=== PATIENT | female | born 1960 | race Caucasian/White ===

== ENCOUNTER 2020-11-07 04:37 | Inpatient (IN) | payer MEDICARE, OTHER ==
[~2020-11-07] VITALS: Ht 162.6 cm; Wt 81.6 kg
--- NOTE | 2020-11-07 04:38 | NUR ---
PT AAOX4. BIBRA FROM HOME C/O MIDSTERNAL CP RADIATING TO L ARM +BACK OF NECK. PLACED ON OBSTETRICAL ANESTHESIOLOGIST AND PULSE OX IN BED 11. ER MD AT BEDSIDE FOR EVAL. HPLC CHEMIST GIVEN NITRO AND ASPIRIN. STATES SHE FEELS BETTER BUT REMAINS HAVING SOME PAIN.
[2020-11-07] MEDS ORDERED: ASPIRIN 325 MG TABLET ONE (04:41)
[2020-11-07] MEDS ORDERED: MORPHINE SULFATE INJ 4 MG/ML DISP.SYRIN ONE (04:45)
[2020-11-07] MEDS ORDERED: ONDANSETRON HCL/PF 4 MG/2 ML VIAL ONE (04:45)
[2020-11-07 04:56] LABS: BASOPHILS # (AUTO) 0.1 /CMM (0.0-0.2); BASOPHILS % (AUTO) 0.6 % (0.0-2.0); EOSINOPHILS % (AUTO) 1.7 % (0.0-6.0); HEMATOCRIT 38 % (33-45); LYMPHOCYTES # (AUTO) 2.6 /CMM (0.8-4.8); LYMPHOCYTES % (AUTO) 27.8 % (20.0-44.0); MEAN CORPUSCULAR HGB CONC 34 g/dl (31.0-36.0); MEAN CORPUSCULAR VOLUME 88 fL (82-100); MONOCYTES # (AUTO) 0.6 /CMM (0.1-1.30); MONOCYTES % (AUTO) 6.6 % (2.0-12.0); NEUTROPHILS # (AUTO) 5.9 /CMM (1.8-8.9); NEUTROPHILS % (AUTO) 63.3 % (43.0-81.0); PLATELET COUNT (AUTO) 213 /CMM (150-450); RED BLOOD CELL COUNT(AUTO) 4.33 MIL/uL (4.0-5.2); WHITE BLOOD COUNT (AUTO) 9.3 K/uL (4.3-11.0)
[2020-11-07] MEDS ORDERED: MORPHINE SULFATE INJ 2 MG/ML DISP.SYRIN IV ONE (05:00)
[2020-11-07] MEDS ORDERED: ONDANSETRON HCL/PF - ER 4 MG/2 ML VIAL IV ONE (05:00)
[2020-11-07] MEDS ORDERED: ASPIRIN 325 MG TABLET PO ONE (05:00)
[2020-11-07 05:03] LABS: CARBON DIOXIDE 26 mmol/L (21-32); CHLORIDE 105 mmol/L (98-107); CREATININE 0.7 mg/dL (0.6-1.3); GLUCOSE 170 mg/dL (74-106); SODIUM SERUM 140 mmol/L (136-145); UREA NITROGEN, BLOOD 8 mg/dL (7-18)
[2020-11-07] MEDS ORDERED: MAGNESIUM HYDROXIDE 30 ML UDC PO PRN ×2 (07:00→12:30)
[2020-11-07] MEDS ORDERED: MAG HYDROX/AL HYDROX/SIMETH 30 ML UDC PO PRN ×2 (07:00→12:30)
[2020-11-07] MEDS ORDERED: Z GUARD REMEDY 2 OZ OINT TP PRN ×2 (07:00→12:30)
[2020-11-07] MEDS ORDERED: ZOLPIDEM TARTRATE 5 MG TABLET PO PRN ×2 (07:00→12:30)
[2020-11-07] MEDS ORDERED: ACETAMINOPHEN 325 MG TABLET PO PRN ×2 (07:00→12:30)
[2020-11-07] MEDS ORDERED: ONDANSETRON HCL/PF 4 MG/2 ML VIAL IVP PRN ×2 (07:00→12:30)
--- NOTE | 2020-11-07 08:15 | NUR ---
Assumed care patient awake alert non distress continue to monitor .
[2020-11-07 09:31] LABS: MAGNESIUM 1.8 mg/dL (1.8-2.4); PHOSPHORUS 3.5 mg/dL (2.5-4.9)
[2020-11-07] MEDS ORDERED: TICA90TA PO (09:53)
[2020-11-07] MEDS ORDERED: METF-442 PO (09:53)
[2020-11-07] MEDS ORDERED: ASPI-1169 PO (09:53)
[2020-11-07] MEDS ORDERED: GLIP5TAB13 PO (09:53)
[2020-11-07] MEDS ORDERED: METO25TA4 PO (09:53)
[2020-11-07] MEDS ORDERED: ATOR40TA PO (09:53)
[2020-11-07] MEDS ORDERED: LISI-768 PO (09:53)
--- NOTE | 2020-11-07 10:52 | NUR ---
Patient awke alert non distress awaiting for bed .
--- NOTE | 2020-11-07 11:31 | NUR ---
CALLED NURSING SUP FOR A BED
--- NOTE | 2020-11-07 12:05 | NUR ---
BS 151
[2020-11-07] MEDS ORDERED: INSULIN REGULAR, HUMAN 100 UNIT/ML 3 ML VIAL SQ PRN (12:30)
[2020-11-07] MEDS ORDERED: NITROGLYCERIN 0.4 MG/TAB BOTTLE SL PRN (12:30)
[2020-11-07] MEDS ORDERED: MORPHINE SULFATE INJ 2 MG/ML DISP.SYRIN IV PRN (12:30)
[2020-11-07] MEDS ORDERED: DEXTROSE 50%-WATER 50 ML DISP.SYRIN IV PRN (12:30)
--- NOTE | 2020-11-07 13:01 | NUR ---
room 327-1
[2020-11-07] MEDS ORDERED: ENOXAPARIN SODIUM 40 MG/0.4 ML DISP.SYRIN SQ ONE (13:16)
[2020-11-07] MEDS: ENOXAPARIN SODIUM 40 MG/0.4 ML DISP.SYRIN SQ SCH (13:20)
--- NOTE | 2020-11-07 13:26 | NUR ---
Report given to Gale DUGAN for parish.
--- NOTE | 2020-11-07 13:50 | NUR ---
SHIP CEILER NOTE RECEIVED PATIENT FROM ER, PATIENT IS IN NO ACUTE DISTRESS, PATIENT IS ON ROOM AIR, TOLERATING WELL. PATIENT IS ON TELE MONITOR READING SR 70s, VITAL SIGNS ARE STABLE. PATIENT HAS IV ACCESS ON THE LEFT FOREARM ELIJAH 20 SALINE LOCK. PATIENT IS ALERT ORIENTED X 4. PATIENT IS AMBULATORY. SAFETY PRECAUTIONS ARE ON BED IS LOCKED, IN THE LOWEST POSITION WITH SIDE RAILS UP, CALL LIGHT WITHIN REACH, WILL CONTINUE TO MONITOR CLOSELY.
--- NOTE | 2020-11-07 14:18 | NUR ---
wheeled patient via gurney accompanied by RN and wmt in no distress. RN assigned to patient at bedside to assume care.
[2020-11-07 16:23] VITALS: BP 109/59
[2020-11-07] MEDS: BLOOD SUGAR DIAGNOSTIC 1 EACH STRIP IN SCH ×2 (16:51→21:57)
[2020-11-07] MEDS: TICAGRELOR 90 MG TABLET PO SCH (16:54)
[2020-11-07] MEDS: glipiZIDE 5 MG TABLET PO SCH (16:54)
[2020-11-07] MEDS: METFORMIN 500 MG TABLET PO SCH (16:55)
--- NOTE | 2020-11-07 16:55 | NUR ---
GAUGER CHIEF DELIVERY NOTE PATIENTS BLOOD SUGAR IS 132, DID NOT ADMINISTER INSULIN PER SLIDING SCALE, PATIENT HAS ORAL HYPOGLYCEMICS METFORMIN AND GLIPIZIDE. ACCORDING TO PATIENT BLOOD SUGAR TENDS TO DROP
--- NOTE | 2020-11-07 20:06 | NUR ---
RAW SHELLFISH PREPARER CLOSING NOTE PATIENT IS IN BED RESTING, PATIENT IS IN NO ACUTE DISTRESS, PATIENT IS ON ROOM AIR, TOLERATING WELL. PATIENT IS ON TELE MONITOR READING SR 70s, VITAL SIGNS ARE STABLE. SAFETY PRECAUTIONS ARE ON BED IS LOCKED, IN THE LOWEST POSITION WITH SIDE RAILS UP, CALL LIGHT WITHIN REACH, ENDORSE PATIENT TO NIGHT TIME BABYSITTER NURSE FOR MARYSOL.
[2020-11-07 20:19] VITALS: BP 141/86
--- NOTE | 2020-11-07 20:33 | NUR ---
PAPER STRIPPER NOTES PATIENT IS IN BED RESTING, PATIENT IS IN NO ACUTE DISTRESS, PATIENT IS ON ROOM AIR, TOLERATING WELL. PATIENT IS ON TELE MONITOR READING SR 70s, VITAL SIGNS ARE STABLE. SAFETY PRECAUTIONS ARE ON BED IS LOCKED, IN THE LOWEST POSITION WITH SIDE RAILS UP, CALL LIGHT WITHIN REACH, WILL CONTINUE TO MONITOR.
[2020-11-07] MEDS: ATORVASTATIN 40 MG TABLET PO SCH (21:46)
[2020-11-08] VITALS (7 sets, daily range): BP systolic 100–153; BP diastolic 55–88
[2020-11-08 06:46] LABS: BASOPHILS % (AUTO) 0.4 % (0.0-2.0); EOSINOPHILS % (AUTO) 1.2 % (0.0-6.0); HEMATOCRIT 38 % (33-45); HEMOGLOBIN 12.9 g/dL (11.5-14.8); LYMPHOCYTES # (AUTO) 2.1 /CMM (0.8-4.8); LYMPHOCYTES % (AUTO) 23.4 % (20.0-44.0); MEAN CORPUSCULAR HGB CONC 34 g/dl (31.0-36.0); MEAN CORPUSCULAR VOLUME 88 fL (82-100); MONOCYTES # (AUTO) 0.5 /CMM (0.1-1.30); MONOCYTES % (AUTO) 5.9 % (2.0-12.0); NEUTROPHILS # (AUTO) 6.2 /CMM (1.8-8.9); NEUTROPHILS % (AUTO) 69.1 % (43.0-81.0); PLATELET COUNT (AUTO) 191 /CMM (150-450); RED BLOOD CELL COUNT(AUTO) 4.32 MIL/uL (4.0-5.2)
[2020-11-08 07:10] LABS: CALCIUM, SERUM 8.7 mg/dL (8.5-10.1); CREATININE 0.5 mg/dL (0.6-1.3); PHOSPHORUS 3.9 mg/dL (2.5-4.9); POTASSIUM 3.8 mmol/L (3.5-5.1)
[2020-11-08 07:23] LABS: THYROID STIMULATING HORMONE 1.573 uIU/mL (0.358-3.74)
[2020-11-08] MEDS ORDERED: PANTOPRAZOLE 40 MG TABLET.DR PO SCH (07:30)
[2020-11-08] MEDS: BLOOD SUGAR DIAGNOSTIC 1 EACH STRIP IN SCH ×4 (07:36→22:00)
[2020-11-08] MEDS: glipiZIDE 5 MG TABLET PO SCH ×2 (08:31→16:27)
[2020-11-08] MEDS: METFORMIN 500 MG TABLET PO SCH ×2 (08:31→16:27)
[2020-11-08] MEDS: ASPIRIN 81 MG TAB.CHEW PO SCH (08:31)
[2020-11-08] MEDS: TICAGRELOR 90 MG TABLET PO SCH ×2 (08:31→16:27)
[2020-11-08] MEDS: METOPROLOL SUCCINATE 25 MG TAB.SR.24H PO SCH (08:32)
[2020-11-08] MEDS: ENOXAPARIN SODIUM 40 MG/0.4 ML DISP.SYRIN SQ SCH (08:33)
[2020-11-08] MEDS ORDERED: LISINOPRIL (5MG) 5 MG TABLET PO SCH (09:00)
--- NOTE | 2020-11-08 09:12 | NUR ---
HIGH SCHOOL MUSIC DIRECTOR OPENING NOTE RECEIVED PATIENT IN BED, AWAKE. A/O X4. STABLE ON ROOM AIR - NO SOB NOTED. NO PAIN NOTED. ON TELE MONITOR - READS SINUS RHYTHM IN THE 70S. IV ACCESS TO RIGHT FOREARM #20 - PATENT AND INTACT, SALINE LOCKED. PATIENT IS AMBULATORY. SAFETY MEASURES IN PLACE. CALL LIGHT WITHIN REACH. WILL CONTINUE TO MONITOR.
--- NOTE | 2020-11-08 18:36 | NUR ---
DERRICK BOAT CAPTAIN CLOSING NOTE PATIENT CURRENTLY LYING IN BED, AWAKE. A/O X4. STABLE ON ROOM AIR - NO SOB OR DISTRESS NOTED. IV ACCESS TO RIGHT FOREARM #20 - INTACT AND PATENT - SALINE LOCKED. PATIENT IS AMBULATORY. TELE MONITOR READS SINUS RHYTHM/SINUS TACHY IN THE 100S. SAFETY MEASURES IN PLACE. CALL LIGHT WITHIN REACH. WILL ENDORSE TO C SOFTWARE DEVELOPER NURSE.
--- NOTE | 2020-11-08 19:35 | NUR ---
TELER FULLY AWAKE, VERY PLEASANT LADY. NO SOB, SR ON THE MONITOR. ALL NEEDS ATTENDED. BRP WITH WITH STANDBY ASSIST. VOIDED FREELY HL PATENT. SAFETY PRECAUTIONS EMPHASIZED, WELL UNDERSTOOD. TO CONTINUE
[2020-11-08] MEDS: ATORVASTATIN 40 MG TABLET PO SCH (22:00)
[2020-11-09] VITALS: BP 159/90
--- NOTE | 2020-11-09 01:30 | NUR ---
TELETN VERBALIZES DISCOMFORTS, STATED PAIN ON SHOULDER AND CHES. NAUSEATED NO EMESIS. MORPHINE IVP ADMINISTERED. ELEVATED BP R/T PAIN. BEDREST FOR NOW. 02 2 L VIA N/C MAINTAINED.
[2020-11-09 04:00] VITALS: BP 119/73
--- NOTE | 2020-11-09 04:07 | NUR ---
TELERN SLEEPING AT THIS TIME, STABLE. CLOSELY WATCHED.
--- NOTE | 2020-11-09 06:50 | NUR ---
TELERN BS WAS 159. NO COMPLAINTS MADE STABLE.
[2020-11-09] MEDS: BLOOD SUGAR DIAGNOSTIC 1 EACH STRIP IN SCH ×2 (07:36→11:27)
--- NOTE | 2020-11-09 07:46 | NUR ---
CURRICULUM DEVELOPMENT MANAGER OPENING NOTE RECEIVED PATIENT LYING IN BED, RESTING. EASY TO AROUSE. A/O X4. STABLE ON ROOM AIR - NO SOB NOTED. NO PAIN NOTED. ON TELE MONITOR - READS SINUS RHYTHM. IV ACCESS TO RIGHT FOREARM #20 - PATENT AND INTACT, SALINE LOCKED. PATIENT IS AMBULATORY. SAFETY MEASURES IN PLACE. CALL LIGHT WITHIN REACH. WILL CONTINUE TO MONITOR.
[2020-11-09 08:00] VITALS: BP 134/87
[2020-11-09] MEDS: ASPIRIN 81 MG TAB.CHEW PO SCH (08:24)
[2020-11-09] MEDS: METFORMIN 500 MG TABLET PO SCH (08:24)
[2020-11-09] MEDS: glipiZIDE 5 MG TABLET PO SCH (08:25)
[2020-11-09] MEDS: METOPROLOL SUCCINATE 25 MG TAB.SR.24H PO SCH (08:26)
[2020-11-09] MEDS: TICAGRELOR 90 MG TABLET PO SCH (08:28)
[2020-11-09] MEDS: ENOXAPARIN SODIUM 40 MG/0.4 ML DISP.SYRIN SQ SCH (08:29)
[2020-11-09] MEDS ORDERED: LISINOPRIL (20MG) 20 MG TABLET PO SCH (09:00)
[2020-11-09 12:00] VITALS: BP 119/72
[2020-11-09] MEDS ORDERED: LISI40TA13 PO (15:39)
--- NOTE | 2020-11-09 16:29 | NUR ---
SCRAP METAL BURNERHAZARDOUS MATERIALS DRIVER NOTE PATIENT DISCHARGED VIA PRIVATE CAR @ 1620. PATIENT IS STABLE, A/O X4. NO SOB OR DISTRESS NOTED. NO PAIN NOTED. SKIN INTACT, PATIENT IS AMBULATORY. ALL EXITCARE AND EDUCATION GONE OVER WITH PATIENT AND GIVEN TO PATIENT IN FOLDER. IV REMOVED. WRISTBAND REMOVED. PATIENT ACCOMPANIED TO LOBBY IN WHEELCHAIR BY ALEXANDER ARMSTRONG.
== END 2020-11-09 16:20 | disposition home or self-care (01) | DRG 198 ==
LOC: ER 04:39 → TRANSITION 08:06 → TELE 13:35
PROVIDERS: ATTEND Nurse Practitioner Acute Care
DX: I25.110 Atherosclerotic heart disease of native coronary artery with unstable angina pectoris (principal); E11.9 Type 2 diabetes mellitus without complications; E78.5 Hyperlipidemia, unspecified; I10 Essential (primary) hypertension; Z20.822 Contact with and (suspected) exposure to COVID-19; Z95.5 Presence of coronary angioplasty implant and graft; I16.0 Hypertensive urgency; Z79.82 Long term (current) use of aspirin; Z79.84 Long term (current) use of oral hypoglycemic drugs; Z79.899 Other long term (current) drug therapy
CPT/HCPCS: 36415; 71045-TC; 80048-TC; 80061-TC; 82962-TC; 83735-TC; 84100-TC; 84443-TC; 84484-TC; 85025-TC; 87081-TC; 93307-TC; 97112-TC; 97116-TC; 97530-TC; C9803; G0378; J1650; J2270; J2405

== ENCOUNTER 2021-06-21 07:04 | Inpatient (IN) | payer MEDICARE, OTHER ==
[~2021-06-21] VITALS: Ht 162.6 cm; Wt 72.2 kg
[~2021-06-21 07:04] MED LIST: ASPI-1169 PO; ATOR40TA PO; GLIP5TAB13 PO; LISI40TA13 PO; METF-442 PO; METO25TA4 PO; TICA90TA PO
[2021-06-21] MEDS ORDERED: MORPHINE SULFATE INJ 4 MG/ML DISP.SYRIN ONE (07:12)
[2021-06-21] MEDS ORDERED: ONDANSETRON HCL/PF 4 MG/2 ML VIAL ONE ×2 (07:12→13:42)
--- NOTE | 2021-06-21 07:12 | NUR ---
PT BIBRA 39 C/O CP X 1 HR, GIVEN ZOFRAN 4, 2 NITRO SPRAY, ASA 324 SENIOR PROJECT ACCOUNTANT. PT IS A/O X 4, RR EVEN AND UNLABORED, NO SOB NOTED. PT CONNECTED TO POLE TRUCK DRIVER AND POX. PT TAKEN TO ER BED 02. WILL CONTINUE TO MONITOR.
--- NOTE | 2021-06-21 07:20 | NUR ---
ASSUME PATIENT CARE. RESTING IN BED. SEEN AND EVALUATED BY ERMD PROVIDER. PT HER FOR CHEST PAIN R/T LUE UPON WAKING UP THIS MORNNG. PT WAS GIVEN W ASPIRIN AND NITRO SEAFOOD PREPARER W/ IMPROVE CONDITION. ON MONITOR. STABLE VITALS. WILL CONTINUE TO MONITOR.
[2021-06-21] MEDS ORDERED: ONDANSETRON HCL/PF 4 MG/2 ML VIAL IVP ONE (07:30)
[2021-06-21] MEDS ORDERED: MORPHINE SULFATE INJ 2 MG/ML DISP.SYRIN IV ONE (07:30)
[2021-06-21 07:51] LABS: BASOPHILS # (AUTO) 0.1 K/uL (0.0-0.2); BASOPHILS % (AUTO) 0.7 % (0.0-2.0); EOSINOPHILS % (AUTO) 0.8 % (0.0-6.0); HEMATOCRIT 41 % (33-45); LYMPHOCYTES # (AUTO) 1.7 K/uL (0.8-4.8); LYMPHOCYTES % (AUTO) 18.8 % (20.0-44.0); MEAN CORPUSCULAR HGB CONC 34 g/dl (31.0-36.0); MEAN CORPUSCULAR VOLUME 86 fL (82-100); MONOCYTES # (AUTO) 0.6 K/uL (0.1-1.30); MONOCYTES % (AUTO) 6.4 % (2.0-12.0); NEUTROPHILS # (AUTO) 6.7 K/uL (1.8-8.9); NEUTROPHILS % (AUTO) 73.3 % (43.0-81.0); PLATELET COUNT (AUTO) 167 K/uL (150-450); RED BLOOD CELL COUNT(AUTO) 4.77 MIL/uL (4.0-5.2); WHITE BLOOD COUNT (AUTO) 9.1 K/uL (4.3-11.0)
[2021-06-21 09:38] LABS: D-DIMER < 0.19 mg/L(FEU (0.17-0.50)
[2021-06-21] MEDS ORDERED: DAPA10TA PO (09:38)
[2021-06-21] MEDS ORDERED: GABA-532 PO (09:38)
[2021-06-21] MEDS ORDERED: ASPI-1420 PO (09:38)
[2021-06-21] MEDS ORDERED: LISI40TA13 PO (09:38)
[2021-06-21] MEDS ORDERED: CLON0.1T PO (09:38)
[2021-06-21] MEDS ORDERED: ERGO500093 PO (09:38)
[2021-06-21 10:38] LABS: CALCIUM, SERUM 8.6 mg/dL (8.5-10.1); CARBON DIOXIDE 25 mmol/L (21-32); CHLORIDE 104 mmol/L (98-107); CREATININE 0.7 mg/dL (0.6-1.3); GLUCOSE 281 mg/dL (74-106); POTASSIUM 3.6 mmol/L (3.5-5.1); SODIUM SERUM 139 mmol/L (136-145); UREA NITROGEN, BLOOD 13 mg/dL (7-18)
--- NOTE | 2021-06-21 11:35 | NUR ---
PATIENT SWABBED. SENT TO LAB.
[2021-06-21] MEDS ORDERED: NITROGLYCERIN 0.4 MG/TAB BOTTLE SL ONE (12:30)
[2021-06-21] MEDS ORDERED: ONDANSETRON HCL/PF 4 MG/2 ML VIAL IVP PRN (12:30)
[2021-06-21] MEDS ORDERED: MORPHINE SULFATE INJ 2 MG/ML DISP.SYRIN IV PRN (12:30)
[2021-06-21] MEDS ORDERED: CLONIDINE HCL 0.1 MG TABLET PO PRN (12:30)
[2021-06-21] MEDS ORDERED: METOPROLOL TARTRATE INJ 5 MG/5 ML AMPUL IVP ONE (12:30)
[2021-06-21] MEDS ORDERED: NITROGLYCERIN 0.4 MG/TAB BOTTLE SL PRN (12:30)
[2021-06-21] MEDS ORDERED: METOPROLOL TARTRATE INJ 5 MG/5 ML AMPUL ONE (12:44)
[2021-06-21] MEDS ORDERED: CT SWABBABLE VALVE TRANS SET 1 EA INFUS.SET MC ONE (12:44)
[2021-06-21] MEDS ORDERED: IOHEXOL-350 100 ML VIAL IV ONE ×2 (12:44→13:16)
[2021-06-21] MEDS ORDERED: NITROGLYCERIN 0.4 MG/TAB BOTTLE ONE (12:44)
--- NOTE | 2021-06-21 13:29 | NUR ---
CTA NOTES PATIENT A/OX3. ABLE TO MAKE NEEDS KNOWN. DENIES ANY SOB OR DISCOMFORT AT THIS TIME. PATIENT AWARE AND AGREED WITH PLAN OF CARE. JANNA MACHINE RECORDS UNITS SUPERVISOR SPEAKING WITH THE PATIENT RE: RISK AND BENEFITS OF PROCEDURE.
--- NOTE | 2021-06-21 13:37 | NUR ---
PT RETURNED FROM CT SCAN.
--- NOTE | 2021-06-21 13:49 | NUR ---
PT FEELING NAUSEOUS COMING BACK FROM CT SCAN. ERMD PROVIDER MADE AWARE. MEDICATED W/ ZOFRAN IVP.
[2021-06-21] MEDS ORDERED: ONDANSETRON HCL/PF 4 MG/2 ML VIAL IV ONE (14:00)
[2021-06-21] MEDS: glipiZIDE 5 MG TABLET PO SCH (17:48)
[2021-06-21] MEDS: TICAGRELOR 90 MG TABLET PO SCH (17:49)
[2021-06-21] MEDS ORDERED: GABAPENTIN 100 MG CAPSULE ONE (18:25)
[2021-06-21] MEDS: GABAPENTIN 100 MG CAPSULE PO SCH (18:27)
--- NOTE | 2021-06-21 18:49 | NUR ---
ROOM 326-2
--- NOTE | 2021-06-21 19:14 | NUR ---
REPORT TO TANYA DUGAN FOR MARYSOL.
--- NOTE | 2021-06-21 20:08 | NUR ---
REPORT GIVEN TO RITCHIE WRIGHT
[2021-06-21 23:00] VITALS: BP 155/79
--- NOTE | 2021-06-21 23:00 | NUR ---
PATIENT TRANSFERRED UNDER ALCS
[2021-06-21 23:20] VITALS: BP 155/79
--- NOTE | 2021-06-21 23:59 | NUR ---
Arrived to unit at 2300 accompanied by 2 staff members. Patient is A&Ox4. VSS. Pt. denies chest pain at this time saying that it has resolved, but states she feels nauseous and dizzy. Will give PRN zofran as per order and fall precautions in place. pupils equal and reactive to light, can move all extremities evenly. Breaths sounds clear, heart rate and rhythm regular. Abdomen soft and non-distended, bowel sounds active x4. Skin intact. Not covid vaccinated by choice. Patient promptly put on tele monitor. Oriented pt. to staff, unit protocols, bed controls, and call light. Will monitor pt. overnight.
[2021-06-22] VITALS: BP 136/88
[2021-06-22 04:00] VITALS: BP 141/83
--- NOTE | 2021-06-22 06:37 | NUR ---
Patient has been A&Ox4, VSS. On the tele monitor pt. has been SR 70s-80s. L wrist #20G intact and patent. Patient did c/o L arm pain radiating from the shoulder down the arm, relieved by PRN Morphine. No other issues overnight. Patient is currently awake, in bed with no signs of distress. denies any pain at this time.
[2021-06-22 07:08] LABS: BASOPHILS % (AUTO) 0.4 % (0.0-2.0); EOSINOPHILS % (AUTO) 1.1 % (0.0-6.0); HEMATOCRIT 40 % (33-45); HEMOGLOBIN 13.7 g/dL (11.5-14.8); LYMPHOCYTES # (AUTO) 1.9 K/uL (0.8-4.8); LYMPHOCYTES % (AUTO) 22.1 % (20.0-44.0); MEAN CORPUSCULAR HGB CONC 35 g/dl (31.0-36.0); MEAN CORPUSCULAR VOLUME 86 fL (82-100); MONOCYTES # (AUTO) 0.7 K/uL (0.1-1.30); MONOCYTES % (AUTO) 7.9 % (2.0-12.0); NEUTROPHILS % (AUTO) 68.5 % (43.0-81.0); PLATELET COUNT (AUTO) 167 K/uL (150-450); WHITE BLOOD COUNT (AUTO) 8.8 K/uL (4.3-11.0)
--- NOTE | 2021-06-22 07:15 | NUR ---
MS RN OPENING NOTES PATIENT AWAKE IN BED IN NO ACUTE SIGNS OF DISTRESS. PATIENT IS A/O X 3-4. NO COMPLAIN OF PAIN OR DISCOMFORT AT THIS TIME. PATIENT ON ROOM AIR WITH NO SIGNS AND SYMPTOMS OF RESPIRATORY DISTRESS. BREATHING EVEN AND UNLABORED.WITH RIGTH AC G 18 ON SALINE LOCK, PATENT AND INTACT. SAFETY PRECAUTIONS MAINTAINED: BED LOCKED AND AT LOWEST POSITION. HOB KEPT ELEVATED, SIDE RAILS UP X2 AND CALL LIGHT WITHIN REACH. WILL CONTINUE TO MONITOR PATIENT.
[2021-06-22 07:52] LABS: CALCIUM, SERUM 8.8 mg/dL (8.5-10.1); CREATININE 0.7 mg/dL (0.6-1.3); MAGNESIUM 2.3 mg/dL (1.8-2.4); PHOSPHORUS 3.8 mg/dL (2.5-4.9); POTASSIUM 3.5 mmol/L (3.5-5.1)
[2021-06-22 08:15] VITALS: BP 160/88
[2021-06-22] MEDS ORDERED: ATORVASTATIN 10 MG TABLET PO SCH (09:00)
[2021-06-22] MEDS ORDERED: LISINOPRIL (20MG) 20 MG TABLET PO SCH (09:00)
[2021-06-22] MEDS ORDERED: METOPROLOL SUCCINATE 25 MG TAB.SR.24H PO SCH (09:00)
[2021-06-22] MEDS ORDERED: ASPIRIN EC 81 MG TABLET.DR PO SCH (09:00)
[2021-06-22 09:25] LABS: CHOLESTEROL 189 mg/dL (<200); HDL CHOLESTEROL 35 mg/dL (40-60); LDL 125 mg/dL (0-99); TRIGLYCERIDES 205 mg/dL (30-150)
[2021-06-22] MEDS: glipiZIDE 5 MG TABLET PO SCH ×2 (10:00→17:50)
--- NOTE | 2021-06-22 12:15 | NUR ---
DATABASE MARKETING SPECIALIST NOTE PATIENT SEEN BY DR. GOMEZ WITH ORDER FOR DISCHARGE. HEALTH TEACHING DONE AND VERBALIZED UNDERSTANDING AND APPRECIATION. WILL CONTINUE TO MONITOR PATIENT.
[2021-06-22 12:49] VITALS: BP 141/65
--- NOTE | 2021-06-22 13:00 | NUR ---
RN NOTE PATIENT DISCHARGED ORDERED. IV ACCESS REMOVED AND COVERED WITH DRY DRESSING. PATIENT ACCOMPANIED TO LOBBY BY NURSE ON A WHEELCHAIR. AND PICKED UP BY FRIEND ON A PRIVATE CAR. PATIENT IN STABLE CONDITION. ENDORSED ACCORDINGLY.
[2021-06-22] MEDS: TICAGRELOR 90 MG TABLET PO SCH ×2 (13:14→17:50)
[2021-06-22] MEDS ORDERED: ACETAMINOPHEN 325 MG TABLET PO PRN (15:30)
[2021-06-22 16:38] VITALS: BP 150/77
[2021-06-22] MEDS: GABAPENTIN 100 MG CAPSULE PO SCH (17:51)
[2021-06-27] MEDS ORDERED: ERGOCALCIFEROL (VITAMIN D 2) 50,000 UNIT CAPSULE PO SCH (12:30)
== END 2021-06-22 18:55 | disposition home or self-care (01) | DRG 303 ==
LOC: ER 07:09 → TRANSITION 17:35 → TELE 19:20
PROVIDERS: ADMIT Internal Medicine; ATTEND Internal Medicine
DX: I25.110 Atherosclerotic heart disease of native coronary artery with unstable angina pectoris (principal); J98.11 Atelectasis; E11.9 Type 2 diabetes mellitus without complications; I10 Essential (primary) hypertension; E78.5 Hyperlipidemia, unspecified; Z79.899 Other long term (current) drug therapy; Z79.82 Long term (current) use of aspirin; Z79.84 Long term (current) use of oral hypoglycemic drugs; Z95.5 Presence of coronary angioplasty implant and graft; Z79.02 Long term (current) use of antithrombotics/antiplatelets
CPT/HCPCS: 36415; 71045-TC; 75574; 80048-TC; 80061-TC; 83735-TC; 84100-TC; 84484-TC; 85025-TC; 85378-TC; 85730-TC; 87081-TC; 93307-TC; C9803; G0378; J2270; J2405; J3490; Q9967